=== PATIENT | female | born 1970 | race Caucasian/White ===

== ENCOUNTER 2017-12-04 20:00 | Emergency (ER) | payer SELFPAY | END 2017-12-04 22:15 | disposition home or self-care (01) | LOC: D.ER 20:00 | DX: K02.9 Dental caries, unspecified (principal); K08.89 Other specified disorders of teeth and supporting structures; K04.7 Periapical abscess without sinus ==

== ENCOUNTER 2019-09-25 08:47 | Emergency (ER) | payer SELFPAY ==
[~2019-09-25] VITALS: Ht 162.6 cm; Wt 90.9 kg
[2019-09-25 08:56] VITALS: Ht 162.6 cm; Wt 90.9 kg
[2019-09-25] MEDS ORDERED: HYDROCODON-ACE1 EAC7 PO (10:21)
[2019-09-25] MEDS ORDERED: NAPROSYN500 MG PO (10:21)
[2019-09-25 10:34] VITALS: BP 132/65
== END 2019-09-25 10:35 | disposition home or self-care (01) ==
LOC: D.ER 08:47
DX: M25.512 Pain in left shoulder (principal); X50.9XXA Other and unspecified overexertion or strenuous movements or postures, initial encounter; Y93.K1 Activity, walking an animal; Y92.9 Unspecified place or not applicable

== ENCOUNTER 2020-05-06 01:19 | Emergency (ER) | payer BC ==
[~2020-05-06] VITALS: Ht 162.6 cm; Wt 81.8 kg
[~2020-05-06 01:19] MED LIST: HYDROCODON-ACE1 EAC7 PO; NAPROSYN500 MG PO
[2020-05-06 01:24] VITALS: BP 130/80; Ht 162.6 cm; Wt 81.8 kg
[2020-05-06] MEDS ORDERED: HYDROCODON-ACE1 EA10 PO (01:43)
== END 2020-05-06 02:13 | disposition home or self-care (01) ==
LOC: D.ER 01:19
DX: M24.9 Joint derangement, unspecified (principal); M25.512 Pain in left shoulder